=== PATIENT | male | born 1960 | race Caucasian/White ===

== ENCOUNTER → 2023-02-25 13:25 | Outpatient (BNVA) | payer MEDICARE, MEDICAID, SELFPAY | PROVIDERS: PCP Physician Assistant Medical; Visit Provider Psychiatry & Neurology Neurology | DX: R26.9 Unspecified abnormalities of gait and mobility (principal); R29.6 Repeated falls | CPT/HCPCS: 99202 ==

== ENCOUNTER 2023-03-31 13:07 | Outpatient (REF) | payer MEDICARE, MEDICAID, SELFPAY ==
--- NOTE | ~2023-03-31 | MR_ITS ---
EXAMINATION: MR BRAIN WITHOUT CONTRAST CLINICAL INFORMATION: Unspecified abnormalities of gait and mobility. COMPARISON: None available. TECHNIQUE: Multiplanar, multisequence imaging of the brain was performed without intravenous contrast. FINDINGS: There is an ill-defined lesion within the right aspect of the soft palate measuring up to 2.0 x 1.7 cm, best seen on series 7 image 12/17. There is no acute or chronic infarction, hemorrhage, mass, or extra-axial fluid collection. Mild scattered foci of T2/FLAIR hyperintensity are seen within the cerebral white matter, typical of chronic microangiopathy. The ventricles are normal in size without hydrocephalus. Cerebellopontine angle cisterns appear normal. The arterial flow voids appear preserved at the skull base. The orbits appear normal. There is minimal paranasal sinus mucosal thickening. The mastoids are clear. MR/MR head/brain wo con IMPRESSION: 1. No acute intracranial abnormality. No infarct, mass, or hydrocephalus. 2. Ill-defined lesion within the right aspect of the soft palate measuring up to 2.0 x 1.7 cm. Recommend ENT evaluation. This report will be called in to the ordering clinician's office.
== END 2023-03-31 13:08 | disposition home or self-care (01) ==
LOC: HO.MRI 13:07
PROVIDERS: PCP Physician Assistant Medical; Visit Provider Psychiatry & Neurology Neurology
DX: R26.9 Unspecified abnormalities of gait and mobility (principal)
CPT/HCPCS: 70551

== ENCOUNTER 2023-04-02 14:55 | Outpatient (REF) | payer MEDICARE, MEDICAID, SELFPAY ==
--- NOTE | ~2023-04-02 | MR_ITS ---
EXAMINATION: MR CERVICAL SPINE WITHOUT CONTRAST CLINICAL INFORMATION: Repeated falls COMPARISON: None TECHNIQUE: MRI of the cervical spine was obtained using routine sequences without contrast. FINDINGS: The craniocervical junction is intact. Trace retrosubluxation of the right C1 lateral mass relative to the right C2 lateral mass with well aligned left C1-C2 facet joint. Straightening of the normal cervical lordosis. Grade 1 anterolisthesis of C7 on T1. Vertebral body heights are normal without acute compression fracture. No suspicious osseous lesion. Diffuse disc desiccation with severe C5-C6 and T1-T2 and moderate C3-C4, C6-C7, and C7-T1 disc height loss. Prominent type I Modic endplate change at C5-C6 and to a much lesser extent at T1-T2 and T3-T4. Multilevel degenerative endplate irregularity/Schmorl's node formation. Several ventral disc osteophytes, most pronounced at C5-C6. There are multilevel degenerative changes with level by level detail as follows: C2-C3: Broad-based central disc protrusion eccentric to the right with minor uncovertebral spurring and bilateral facet arthrosis, severe on the right with associated small joint effusion. No spinal canal or right neural foraminal stenosis. Minimal left neural foraminal stenosis. C3-C4: Disc osteophyte complex with superimposed central disc protrusion, bilateral uncovertebral joint hypertrophy and mild facet arthrosis with ligamentum flavum thickening. Moderate spinal canal stenosis with contact/mild mass effect effect along the right paramedian ventral cord. Moderate right greater than left neural foraminal stenosis. C4-C5: Disc osteophyte complex with superimposed shallow central disc protrusion, uncovertebral joint hypertrophy, and right greater than left facet arthrosis with ligamentum flavum thickening. Moderate spinal canal stenosis. Moderate right and mild left neural foraminal stenosis. C5-C6: Disc osteophyte complex with marked bilateral uncovertebral joint hypertrophy and mild bilateral facet arthrosis with ligamentum flavum thickening. Moderate to severe spinal canal stenosis with ventral cord flattening. Severe bilateral neural foraminal stenosis. C6-C7: Disc osteophyte complex with bilateral uncovertebral joint hypertrophy and mild bilateral facet arthrosis. No spinal canal stenosis. Moderate to severe bilateral neural foraminal stenosis. C7-T1: Grade 1 anterolisthesis with uncovering of posterior disc material and bilateral facet arthrosis with ligamentum flavum thickening. Mild degenerative marrow edema with the right facet joint. Mild spinal canal stenosis. Severe bilateral neural foraminal stenosis with compression along the exiting C8 nerve roots. No cervical cord signal abnormality, within the limitations of motion artifact. No epidural fluid collection, mass, or hematoma. Partially imaged thoracic spondylitic disease, including disc bulges at T1-T2 and T3-T4 however without overt spinal canal stenosis. Mild bilateral T1-T2 neural foraminal stenosis. No significant abnormalities of the paraspinal musculature. The flow voids of the major cervical vessels are maintained. Atherosclerotic disease at the bilateral carotid bifurcations with short segment retropharyngeal course of the right proximal internal carotid artery. The visualized intracranial structures are normal. No demonstrated abnormalities in the visualized neck. MR/MR cervical spine wo con IMPRESSION: Multilevel moderate to severe discogenic disease, most pronounced at C5-C6 where there is prominent type I Modic endplate change. Multilevel cervical spondylosis contributes to moderate to severe C5-C6 and moderate C3-C4 and C4-C5 spinal canal stenosis. No cord signal abnormality. Multilevel neural foraminal stenosis as described, worst and severe bilaterally at C5-C6 and C7-T1 with compression of the exiting bilateral C8 nerve roots. Degenerative marrow edema associated with right C7-T1 facet arthropathy.
== END 2023-04-02 14:56 | disposition home or self-care (01) ==
LOC: HO.MRI 14:55
PROVIDERS: Visit Provider Psychiatry & Neurology Neurology
DX: R29.6 Repeated falls (principal)
CPT/HCPCS: 72141

== ENCOUNTER 2023-06-02 15:32 | Outpatient (AMB) | payer MEDICARE, MEDICAID, SELFPAY ==
[2023-06-02 15:37] VITALS: BP 138/82; PULSE 70; BMI 34.3
--- NOTE | 2023-06-02 15:37 | MHC.OFFVIS ---
Intake Vital Signs 06/02/23 15:37 Height 5 ft 10 in Weight 239 lb 2 oz BMI 34.3 BP 138/82 Blood Pressure Location Rt brachial Position Sitting Pulse 70 Pulse Source Pulse Oximeter Intake Visit Reasons: 3mSupranuclear Palsy-lvm Intake Note: Patient presents for 3 month follow up Allergies morphine Allergy (Severe, Verified 06/02/23 15:40) Itching Medication List - Last Reconciled 06/02/23 by Melody Horvath MD allopurinol 300 mg PO DAILY gabapentin 300 mg PO DAILY ibuprofen 600 mg PO TID PRN indomethacin 50 mg PO TID lisinopril 40 mg PO DAILY paroxetine HCl 40 mg PO DAILY HPI HPI Comments History of Present Illness Details 62y/o right handed male comes for follow up of multiple falls and gait problems.He had 1-2 falls since his last visit.He is less impulsive.MRI brain was non focal MRI C spine was c/w severe spinal stenosis at C3-4,4-5,5-6 levels He denies neck pain, no numbness , has diffiuclty holding his urine at night He noticed that his balance was not good and had multiple falls starting about 1 year agoHe had 1-3 falls a week . He started to slow down and be more attentive and his falls decreased since then.his last fall was about 6 mths ago He has h/o chronic back pain. He also reports leg cramps and numbness mostly on his right when he is sitting. He also reports tingling worse when he is sitting.He has occasional shooting pain from back down his legs .He denies urinary incontinence. He has occasional neck pain and rare tremors. He denies any change in his voice. His last fall was when he tried to turn and lost his balance.No h/o heavy alcohol use. He has h/o vertigo- mild. He denies any passing out . According to his he walks into things . He is not sure if he has any visual issues. 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 Neck pain Obesity AMEE on CPAP Spinal stenosis in cervical region Family History Father Cancer HTN (hypertension) Gout Mother Cancer Hepatitis Social History Alcohol intake: current Patient Tobacco Use Status: Never used Tobacco Physical Exam Vital Signs: Last Vital Signs Pulse 70 06/02/23 15:37 BP 138/82 06/02/23 15:37 BMI result Body Mass Index 34.3 Const Orientation/consciousness: patient oriented x3 Eyes Pupils: Equal, round and reactive pupils present Neuro Other: mild dysonjugate gaze General: patient oriented x3, tone normal, moves all extremities and no focal motor deficits Cranial nerves: Yes Facial sensation intact/muscles of mastication intact, Yes Equal, round and reactive pupils present, Yes Nystagmus not present, Yes Normal facial strength present, Yes Midline tongue present, Yes Symmetric palate elevation present and Yes Ability to bilaterally elevate shoulders present Cognition (Neuro): normal cognition Gait exam (Neuro): Antalgic gait present Motor exam (neuro): 5/5 motor strength present throughout Deep tendon reflexes (DTR's): Right triceps reflex intensity grade: 1+, Left triceps reflex intensity grade: 1+, Rt Biceps (C5, C6): 1+, Left biceps reflex intensity grade: 1+, Right brachioradialis reflex intensity grade: 1+, Left brachioradialis reflex intensity grade: 1+, Right patellar reflex intensity grade: 1+ and Left patellar reflex intensity grade: 0 Coordination: [id number]-turo test normal Results Reviewed Results Reviewed: MRI Brain -?No acute intracranial abnormality. No infarct, mass, or hydrocephalus. 2.? Ill-defined lesion within the right aspect of the soft palate measuring up to 2.0 x 1.7 cm. Recommend ENT evaluation. TECHNIQUE: MRI of the cervical spine was obtained using routine sequences without contrast. FINDINGS: The craniocervical junction is intact. Trace retrosubluxation of the right C1 lateral mass relative to the right C2 lateral mass with well aligned left C1-C2 facet joint. Straightening of the normal cervical lordosis. Grade 1 anterolisthesis of C7 on T1. Vertebral body heights are normal without acute compression fracture. No suspicious osseous lesion. Diffuse disc desiccation with severe C5-C6 and T1-T2 and moderate C3-C4, C6-C7, and C7-T1 disc height loss. Prominent type I Modic endplate change at C5-C6 and to a much lesser extent at T1-T2 and T3-T4. Multilevel degenerative endplate irregularity/Schmorl's node formation. Several ventral disc osteophytes, most pronounced at C5-C6. There are multilevel degenerative changes with level by level detail as follows: C2-C3: Broad-based central disc protrusion eccentric to the right with minor uncovertebral spurring and bilateral facet arthrosis, severe on the right with associated small joint effusion. No spinal canal or right neural foraminal stenosis. Minimal left neural foraminal stenosis. C3-C4: Disc osteophyte complex with superimposed central disc protrusion, bilateral uncovertebral joint hypertrophy and mild facet arthrosis with ligamentum flavum thickening. Moderate spinal canal stenosis with contact/mild mass effect effect along the right paramedian ventral cord. Moderate right greater than left neural foraminal stenosis. C4-C5: Disc osteophyte complex with superimposed shallow central disc protrusion, uncovertebral joint hypertrophy, and right greater than left facet arthrosis with ligamentum flavum thickening. Moderate spinal canal stenosis. Moderate right and mild left neural foraminal stenosis. C5-C6: Disc osteophyte complex with marked bilateral uncovertebral joint hypertrophy and mild bilateral facet arthrosis with ligamentum flavum thickening. Moderate to severe spinal canal stenosis with ventral cord flattening. Severe bilateral neural foraminal stenosis. C6-C7: Disc osteophyte complex with bilateral uncovertebral joint hypertrophy and mild bilateral facet arthrosis. No spinal canal stenosis. Moderate to severe bilateral neural foraminal stenosis. C7-T1: Grade 1 anterolisthesis with uncovering of posterior disc material and bilateral facet arthrosis with ligamentum flavum thickening. Mild degenerative marrow edema with the right facet joint. Mild spinal canal stenosis. Severe bilateral neural foraminal stenosis with compression along the exiting C8 nerve roots. No cervical cord signal abnormality, within the limitations of motion artifact. No epidural fluid collection, mass, or hematoma. Partially imaged thoracic spondylitic disease, including disc bulges at T1-T2 and T3-T4 however without overt spinal canal stenosis. Mild bilateral T1-T2 neural foraminal stenosis. No significant abnormalities of the paraspinal musculature. The flow voids of the major cervical vessels are maintained. Atherosclerotic disease at the bilateral carotid bifurcations with short segment retropharyngeal course of the right proximal internal carotid artery. The visualized intracranial structures are normal. No demonstrated abnormalities in the visualized neck.? MR/MR cervical spine wo con IMPRESSION: Multilevel moderate to severe discogenic disease, most pronounced at C5-C6 where there is prominent type I Modic endplate change. Multilevel cervical spondylosis contributes to moderate to severe C5-C6 and moderate C3-C4 and C4-C5 spinal canal stenosis. No cord signal abnormality. Multilevel neural foraminal stenosis as described, worst and severe bilaterally at C5-C6 and C7-T1 with compression of the exiting bilateral C8 nerve roots. Degenerative marrow edema associated with right C7-T1 facet arthropathy. ? Assessment & Plan Assessment & Plan (1) Gait disorder: Comment: cervical spinal stenosis Code(s): R26.9 - Unspecified abnormalities of gait and mobility (2) Frequent falls: Code(s): R29.6 - Repeated falls Plan No evidence of parkinsons or parkinsonism I will refer to Dr. Quinonez for cervical spinal stenosis The falls and gait disorder are multifactorial - cognitive neurologic and musculoskeletal - suggested to continue with paying attention , using good judgment while ambulating Orders: Referrals Neuro Spine Referral M48.02 - Spinal stenosis, cervical region Coding Level of Care Code Est Pt Level 4 (34880) Diagnoses Gait disorder R26.9 Frequent falls R29.6
== END 2023-06-02 16:00 | disposition home or self-care (01) ==
LOC: HO.HSMS 15:32
PROVIDERS: PCP Physician Assistant Medical; Visit Provider Psychiatry & Neurology Neurology
DX: R26.9 Unspecified abnormalities of gait and mobility (principal); R29.6 Repeated falls
CPT/HCPCS: 99214

== ENCOUNTER → 2023-06-02 15:32 | Outpatient (BNVA) | payer MEDICARE, MEDICAID, SELFPAY | PROVIDERS: PCP Physician Assistant Medical; Visit Provider Psychiatry & Neurology Neurology | DX: R29.6 Repeated falls (principal); M48.02 Spinal stenosis, cervical region | CPT/HCPCS: 99212 ==

== ENCOUNTER 2023-08-07 10:19 | Outpatient (AMB) | payer MEDICARE, SELFPAY ==
--- NOTE | 2023-08-07 10:39 | A.SPINEOV_ITS ---
Intake Intake Visit Reasons: spinal stenosis Allergies morphine Allergy (Severe, Verified 06/02/23 15:40) Itching Assessment & Plan Assessment & Plan (1) Hip pain, acute: Code(s): M25.559 - Pain in unspecified hip (2) Bilateral carpal tunnel syndrome: Code(s): G56.03 - Carpal tunnel syndrome, bilateral upper limbs Plan Dear colleague Thank you for referring Sai Shin to the office today with a chief complaint of right hip pain. HPI: This 62-year-old male comes to my office complaining of acute right hip pain that started 3 months ago. He thought that is why he was referred to my office. On further questioning, he states he has neck pain without radiation into his arms, intermittent numbness of his hands any drops objects. He also has balance problems. The numbness in his hands occurred when he drives was on the phone. The numbness wakes him up at night and any is to shake his hands. PMH: Throat cancer, Neuropathy, gout, anxiety, GERD, hypertension Social history: Medications: Lisinopril, allopurinol, omeprazole, paroxetine, aspirin Allergies: NKDA Physical Exam: Pleasant male, normal strength. Romberg is positive. No pathological reflexes. Tinel sign is positive over the bilateral wrist. Endo and extra rotation of the right hip is very painful. Radiological Studies: MRI of the cervical spine done at [facility] [place] on [place]/02/2023 shows severe degenerative disc disease C5-C6 and severe bilateral C6 foraminal stenosis. There is central spinal stenosis but I still see spinal fluid around the cord. No myelomalacia Impression/Plan: His main symptom is right hip pain with positive findings on exam for which I referred him to , orthopedic surgeon. I did obtain an x-ray of the right hip today. The patient's neck pain is related to the C5-C6 degenerative disc disease. His exam shows no signs of cervical myelopathy and therefore did not offer him any surgical intervention. However, clinically he is suffering from bilateral carpal tunnel syndrome. I will refer for an EMG to confirm the diagnosis and will treat this if comes back positive. The patient will follow-up after the EMG. Thank you for allowing me to participate in your patients care. total time spent was 50 minutes in counseling ,coordination of plan, personal review of imaging, and subsequent plan Adrian Quinonez MD, PhD Sp[facility] Trained Neurosurgeon Director, [facility] Orders: Orders XR hip RT min 2V Today M25.559 - Pain in unspecified hip NE electromyogram (EMG) Today G56.03 - Carpal tunnel syndrome, bilateral upper limbs, M25.559 - Pain in unspecified hip Referrals Orthopedics Referral M25.559 - Pain in unspecified hip Coding Level of Care Code New Pt Level 4 (75427) Diagnoses Hip pain, acute M25.559 Bilateral carpal tunnel syndrome G56.03
== END 2023-08-07 11:41 | disposition home or self-care (01) ==
PROVIDERS: PCP Physician Assistant Medical; Referring Provider Psychiatry & Neurology Neurology; Visit Provider Neurological Surgery
DX: M25.559 Pain in unspecified hip (principal); G56.03 Carpal tunnel syndrome, bilateral upper limbs
CPT/HCPCS: 99204

== ENCOUNTER 2023-08-07 10:19 | Outpatient (REF) | payer MEDICARE, SELFPAY ==
--- NOTE | ~2023-08-07 | XR_ITS ---
EXAMINATION: XR HIP, RIGHT CLINICAL INFORMATION: Pain in unspecified hip COMPARISON: None available. TECHNIQUE: Two views of the right hip. FINDINGS: No fracture. Alignment is anatomic. There is marked narrowing of the superior-lateral aspect of the hip joint space. Subchondral sclerosis is seen in the superior dorsolateral aspect of the acetabulum. Small marginal osteophytes extend off the acetabulum and femoral head. XR/XR hip RT min 2V IMPRESSION: Marked osteoarthritis of the right hip.
== END 2023-08-07 10:20 | disposition home or self-care (01) ==
LOC: HO.HOSX 10:19
PROVIDERS: PCP Physician Assistant Medical; Visit Provider Neurological Surgery
DX: M25.551 Pain in right hip (principal)
CPT/HCPCS: 73502

== ENCOUNTER 2023-08-26 12:28 | Outpatient (AMB) | payer MEDICARE, SELFPAY ==
--- NOTE | 2023-08-26 12:32 | A.OFFVIS_ITS ---
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 Patient describes his pains as sharp in nature. Patient states that over the last 6 months he has fallen on several occasions. The patient is not sure why he has fallen. He states that he simply lost his balance. He also reports intermittent weakness in both of his legs. He describes his right hip pain as achy in nature. Most of the pain is located within his right groin. He is due to have an EMG of both of his upper extremities to evaluate him for possible carpal tunnel syndrome later this month. 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 Hyperlipidemia HTN (hypertension) Obesity Frequent falls Gait disorder Family History Father Cancer HTN (hypertension) Gout Mother Cancer Hepatitis Social History (Updated 08/26/23 @ 12:38 by Shannan Alva Abena) Alcohol intake: current Patient Tobacco Use Status: Never used Tobacco Current occupational status: employed 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 Physical Exam Vital Signs: BMI result Body Mass Index 34.3 Const Other: Well-nourished well-developed very friendly male awake alert and oriented x3 in no acute distress Extrem Other: Bilateral lower extremity examination shows good capillary refill, no skin lesions noted, normal sensation light touch Right hip examination shows decreased range of motion when compared to his left hip, pain with range of motion, no tenderness over Results Reviewed Results Reviewed: X-rays of the patient's right hip show moderate to severe joint space narrowing, subchondral sclerosis, no acute bony abnormalities MRI report of the patient's cervical spine shows moderate to severe spinal canal stenosis with ventral cord flattening as well as severe bilateral neural foraminal stenosis at level C5-C6, moderate to severe bilateral neural foraminal stenosis at level C6-C7, severe bilateral neural foraminal stenosis with compression along the exiting C8 nerve roots at level C7-T1 Assessment & Plan Assessment & Plan (1) Arthritis of right hip: Code(s): M16.11 - Unilateral primary osteoarthritis, right hip Plan Mr. Shin presents with right hip pain due to degenerative joint disease as well as neck pain and frequent falls possibly due to cervical stenosis. I had a lengthy discussion with the patient regarding the treatment options. He wishes to hold off on right total hip replacement surgery for as long as possible. In lieu of his recent falls I agree with this plan. I did recommend that the patient has follow-up with a next specialist for further information regarding his cervical stenosis. He states that he knows of a neck specialist at [facility]. He will contact our office to make a follow-up appointment to further discuss the possible relationship between his recent falls and his cervical MRI findings. Feel free to call me at any time should questions regarding his orthopedic management arise. Thank you very much for asking me to see this very friendly gentleman. I spent 22 minutes in reviewing the patient's records and imaging studies, seeing the patient and documenting in the medical record. Medications: New prednisolone 5 mg PO DAILY 21 ea 0RF tramadol 50 mg PO Q8H PRN 40 tabs 0RF pain Coding Level of Care Code New Pt Level 2 (92074) Diagnoses Arthritis of right hip M16.11
[2023-08-26 12:38] VITALS: BMI 34.3
== END 2023-08-26 12:59 | disposition home or self-care (01) ==
PROVIDERS: PCP Physician Assistant Medical; Visit Provider Orthopaedic Surgery
DX: M16.11 Unilateral primary osteoarthritis, right hip (principal)
CPT/HCPCS: 99202

== ENCOUNTER → 2023-08-26 12:28 | Outpatient (BNVA) | payer MEDICARE, SELFPAY | PROVIDERS: PCP Physician Assistant Medical; Visit Provider Orthopaedic Surgery | DX: M16.11 Unilateral primary osteoarthritis, right hip (principal); G56.03 Carpal tunnel syndrome, bilateral upper limbs; M25.551 Pain in right hip; M54.2 Cervicalgia; R29.6 Repeated falls | CPT/HCPCS: 99202 ==

== ENCOUNTER 2023-09-04 14:09 | Outpatient (REF) | payer MEDICARE, SELFPAY ==
--- NOTE | 2023-09-04 14:16 | EMG_ITS ---
Chief complaint: Bilateral hand numbness several years Reason for referral: Evaluate for Carpal Tunnel Syndrome Referred by: Dr. Quinonez Procedure done: Bilateral upper extremities NCS/EMG Precautions and/or limitations: None The limb temperature was monitored continuously and remained between 32-36 degrees C during the performance of the NCS. Nerve Conduction Studies Anti Sensory Summary Table ?Stim Site NR Onset (ms) Norm Onset (ms) Peak (ms) Norm Peak (ms) O-P Amp (?V) Norm O-P Amp Site1 Site2 Delta-0 (ms) Dist (cm) Jeremiah (m/s) Norm Jeremiah (m/s) Left Median Anti Sensory (2nd Digit) Wrist NR <3.6 >10 Wrist 2nd Digit 14.0 Right Median Anti Sensory (2nd Digit) Wrist ? 4.3 5.5 <3.6 8.2 >10 Wrist 2nd Digit 4.3 14.0 33 Left Ulnar Anti Sensory (5th Digit) Wrist ? 1.5 2.2 <3.7 9.3 >15.0 Wrist 5th Digit 1.5 14.0 93 Right Ulnar Anti Sensory (5th Digit) Wrist ? 1.6 2.6 <3.7 16.5 >15.0 Wrist 5th Digit 1.6 14.0 88 Motor Summary Table ?Stim Site NR Onset (ms) Norm Onset (ms) O-P Amp (mV) Norm O-P Amp iAmp (mV) Amp (1st) (%) Site1 Site2 Delta-0 (ms) Dist (cm) Jeremiah (m/s) Norm Jeremiah (m/s) Left Median Motor (Abd Poll Brev) Wrist ? 8.2 <3.9 3.7 >4.5 4.1 100.0 Elbow Wrist 6.1 21.0 34 >45 Elbow ? 14.3 1.8 1.7 48.6 Right Median Motor (Abd Poll Brev) Wrist ? 5.6 <3.9 5.2 >4.5 6.1 100.0 Elbow Wrist 5.1 22.0 43 >45 Elbow ? 10.7 3.6 4.4 69.2 Left Ulnar Motor (Abd Dig Minimi) Wrist ? 3.0 <3.0 6.6 >5 7.8 100.0 B Elbow Wrist 3.9 19.0 49 >45 B Elbow ? 6.9 6.0 7.0 90.9 A Elbow B Elbow 1.6 10.0 63 >45 A Elbow ? 8.5 5.4 6.4 81.8 Right Ulnar Motor (Abd Dig Minimi) Wrist ? 2.3 <3.0 8.2 >5 10.5 100.0 B Elbow Wrist 4.0 20.0 50 >45 B Elbow ? 6.3 5.9 7.4 72.0 A Elbow B Elbow 1.9 10.0 53 >45 A Elbow ? 8.2 5.1 6.1 62.2 EMG ?Side Muscle Nerve Root Ins Act Fibs Psw Amp Dur Poly Recrt Int Pat Comment Right 1stDorInt Ulnar C8-T1 Nml Nml Nml Nml Nml 0 Nml Complete Right FlexCarRad Median C6-7 Nml Nml Nml Nml Nml 0 Nml Complete Right Biceps Musculocut C5-6 Nml Nml Nml Nml Nml 0 Nml Complete Right Triceps Radial C6-7-8 Nml Nml Nml Nml Nml 0 Nml Complete Right Deltoid Axillary C5-6 Nml Nml Nml Nml Nml 0 Nml Complete Left 1stDorInt Ulnar C8-T1 Nml Nml Nml Nml Nml 0 Nml Complete Left FlexCarRad Median C6-7 Nml Nml Nml Nml Nml 0 Nml Complete Left Biceps Musculocut C5-6 Nml Nml Nml Nml Nml 0 Nml Complete Left Triceps Radial C6-7-8 Nml Nml Nml Nml Nml 0 Nml Complete Left Deltoid Axillary C5-6 Nml Nml Nml Nml Nml 0 Nml Complete FINDINGS: Right median motor nerve showed prolonged distal latency, normal amplitude and slow conduction velocity. Left median motor nerve showed prolonged distal latency, small amplitude and slow conduction velocity. Right median sensory nerve showed prolonged peak latency. Left median sensory nerve showed absent response. All other nerves tested were within normal. Concentric needle EMG was performed in selected muscles of the bilateral upper extremities. Study did not reveal signs of electric abnormalities as shown in the table below. IMPRESSION: 1. This is an abnormal study. 2. There is electrodiagnostic evidence for bilateral moderate-severe median neuropathy at the wrist, consistent with carpal tunnel syndrome. 3. There is no electrodiagnostic evidence for ulnar neuropathy, brachial plexopathy, or cervical radiculopathy. Thank you for your kind referral. Lenore Haynes MD, TRISTEN Board Certified, [place] [employer] and [employer] (ABPMR) Board Certified, [place] Board of Electrodiagnostic Medicine (ABEM) CODIN [id number] x 2 MTDD
== END 2023-09-04 14:10 | disposition home or self-care (01) ==
LOC: HO.NEURO 14:09
PROVIDERS: PCP Physician Assistant Medical; Visit Provider Neurological Surgery
DX: G56.03 Carpal tunnel syndrome, bilateral upper limbs (principal)
CPT/HCPCS: 95886; 95910

== ENCOUNTER → 2023-09-04 14:16 | Outpatient (BNV) | payer MEDICARE, SELFPAY | PROVIDERS: PCP Physician Assistant Medical; Visit Provider Physical Medicine & Rehabilitation | DX: G56.13 Other lesions of median nerve, bilateral upper limbs (principal); G56.03 Carpal tunnel syndrome, bilateral upper limbs | CPT/HCPCS: 95886; 95910 ==

== ENCOUNTER 2023-09-22 14:58 | Outpatient (AMB) | payer MEDICARE, SELFPAY ==
--- NOTE | 2023-09-22 16:12 | MHC.OFFVIS ---
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 As Dr. Quinonez suspected, he has bilateral moderate to severe carpal tunnel. We discussed the risks and benefits of surgery as well as the recovery. He would like to proceed starting with the left hand and then subsequently to the right hand. I have set him up for 2 separate dates, December 10 and 12/24/2023. All questions were answered to the best of my ability. Total amount of time spent in this visit was 20 minutes in discussion of symptoms, EMG results and subsequent plan of care Matt Quinonez MD,PhD [facility] Coding Level of Care Code Est Pt Level 3 (13514) Diagnoses Bilateral carpal tunnel syndrome G56.03
== END 2023-09-22 16:16 | disposition home or self-care (01) ==
PROVIDERS: PCP Physician Assistant Medical; Visit Provider Physician Assistant
DX: G56.03 Carpal tunnel syndrome, bilateral upper limbs (principal)
CPT/HCPCS: 99213

== ENCOUNTER → 2023-09-22 14:58 | Outpatient (BNVA) | payer MEDICARE, SELFPAY | PROVIDERS: PCP Physician Assistant Medical; Visit Provider Physician Assistant | DX: G56.03 Carpal tunnel syndrome, bilateral upper limbs (principal) | CPT/HCPCS: 99212 ==

== ENCOUNTER 2023-09-29 14:04 | Outpatient (AMB) | payer MEDICARE, MEDICAID, SELFPAY ==
--- NOTE | 2023-09-29 14:08 | A.OFFVIS_ITS ---
Intake Vital Signs 09/29/23 14:10 Height 5 ft 10 in Weight 237 lb 4 oz BMI 34.0 BP 136/70 Blood Pressure Location Rt brachial Position Sitting Respiration 17 Pulse 67 Pulse Source Pulse Oximeter Pulse Oximetry (%) 97 Oxygen Delivery Method Room Air Intake Visit Reasons: 4m Supranuclear Palsy- Confirmed Intake Note: Pt presents to the office for a 4 month follow up for frequent falls. He reports he's been doing well. He denies having any falls since his last visit. [facility] [place] Required: No Allergies morphine Allergy (Severe, Verified 09/29/23 14:10) Itching HPI HPI Comments History of Present Illness Details 63y/o right handed male comes for follow up of multiple falls and gait problems.He had 1-2 falls since his last visit.He is less impulsive.MRI brain was non focal MRI C spine was c/w severe spinal stenosis at C3-4,4-5,5-6 levels- reviewed by Dr. Quinonez and another [facility] Neurosurgeon did not think its surgical He denies neck pain, no numbness , has difficulty holding his urine at night Previous history-He noticed that his balance was not good and had multiple falls starting about 1 year agoHe had 1-3 falls a week . He started to slow down and be more attentive and his falls decreased since then.his last fall was about 6 mths ago He has h/o chronic back pain. He also reports leg cramps and numbness mostly on his right when he is sitting. He also reports tingling worse when he is sitting.He has occasional shooting pain from back down his legs .He denies urinary incontinence. He has occasional neck pain and rare tremors. He denies any change in his voice. His last fall was when he tried to turn and lost his balance.No h/o heavy alcohol use. He has h/o vertigo- mild. He denies any passing out . According to his he walks into things . He is not sure if he has any visual issues. He has an appointment with concession cashier next week. 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 Physical Exam Vital Signs: Last Vital Signs Pulse 67 09/29/23 14:10 Resp 17 09/29/23 14:10 BP 136/70 09/29/23 14:10 Pulse Ox 97 09/29/23 14:10 Oxygen Delivery Method Room Air 09/29/23 14:10 BMI result Body Mass Index 34.0 Const Orientation/consciousness: patient oriented x3 Eyes Pupils: Equal, round and reactive pupils present Neuro Other: mild dysonjugate gaze General: patient oriented x3, tone normal, moves all extremities and no focal motor deficits Cranial nerves: Yes Facial sensation intact/muscles of mastication intact, Yes Equal, round and reactive pupils present, Yes Nystagmus not present, Yes Normal facial strength present, Yes Midline tongue present, Yes Symmetric palate elevation present and Yes Ability to bilaterally elevate shoulders present Cognition (Neuro): normal cognition Gait exam (Neuro): Antalgic gait present Motor exam (neuro): 5/5 motor strength present throughout Coordination: [id number] test normal Assessment & Plan Assessment & Plan (1) Gait disorder: Comment: cervical spinal stenosis Code(s): R26.9 - Unspecified abnormalities of gait and mobility (2) Frequent falls: Code(s): R29.6 - Repeated falls Plan No evidence of parkinsons or parkinsonism Dr. Quinonez for cervical spinal stenosis - did not think it was surgical. reviewed notes The falls and gait disorder are multifactorial - cognitive neurologic and musculoskeletal - suggested to continue with paying attention , using good judgment while ambulating Coding Level of Care Code Est Pt Level 4 (20302) Diagnoses Gait disorder R26.9 Frequent falls R29.6
[2023-09-29 14:10] VITALS: BP 136/70; PULSE 67; RESP 17; O2SAT 97; BMI 34.0
== END 2023-09-29 14:38 | disposition home or self-care (01) ==
PROVIDERS: PCP Physician Assistant Medical; Visit Provider Psychiatry & Neurology Neurology
DX: R26.9 Unspecified abnormalities of gait and mobility (principal); R29.6 Repeated falls
CPT/HCPCS: 99214

== ENCOUNTER → 2023-09-29 14:04 | Outpatient (BNVA) | payer MEDICARE, SELFPAY | PROVIDERS: PCP Physician Assistant Medical; Visit Provider Psychiatry & Neurology Neurology | DX: G23.1 Progressive supranuclear ophthalmoplegia [Steele-Richardson-Olszewski] (principal); M48.02 Spinal stenosis, cervical region; R26.9 Unspecified abnormalities of gait and mobility; R29.6 Repeated falls | CPT/HCPCS: 99212 ==

== ENCOUNTER 2023-11-30 09:19 | Day surgery (SDC) | payer MEDICARE, SELFPAY ==
--- NOTE | 2023-11-30 07:31 | MHC.SHP ---
Pre-Procedural Eval Section A Date of Service: 11/30/23 The patient is an INPATIENT: No Changes since office visit: No Cold of Flu in the past 2 weeks, No New Medical Problems, No Changes in Medication and No Patient answered all questions The History & Physical has been completed within 30 days and I have reviewed it.: No Section B Chief Complaint: Carpal tunnel syndrome, bilateral upper limbs Allergies: Allergies Allergy/AdvReac Type Severity Reaction Status Date / Time morphine Allergy Severe Itching Verified 09/29/23 14:10 Review of Systems Sugical H&P ROS: Negative: Constitution, Cardiovascular, Respiratory, Neurological, Psychiatric, Hem-Onc, Allergic/Immunologic, Gastrointestinal, Genitourinary, Musculoskeletal, Integumentary, Endocrine and Eyes/Ears/Nose/Throat Exam Surgical H&P Exam: Not Evaluated: HEENT, Not Evaluated: Heart, Not Evaluated: Lungs, Not Evaluated: Extremities, Not Evaluated: Abdomen, Not Evaluated: Skin and Not Evaluated: Neurological Plan Diagnosis/Plan: Unchanged Left Carpal tunnel release Time Spent With Patient Time: Total time managing care of this patient today ___5_ minutes.
[2023-11-30 09:51] VITALS: BMI 35.0
[2023-11-30 10:00] VITALS: BP 153/88; PULSE 62; RESP 16; TEMP 36.7; O2SAT 94
--- NOTE | 2023-11-30 10:26 | HO.ANESPROP2 ---
[facility] Active Problems Active Problems: All Active Problems (Updated 08/26/23 @ 14:10 by Ricci Marino MD) Arthritis of right hip (Acute) Bilateral carpal tunnel syndrome (Acute) Hip pain, acute (Acute) Spinal stenosis in cervical region (Acute) AMEE on CPAP (Acute) Neck pain (Acute) Low back pain (Acute) BPH (benign prostatic hyperplasia) (Acute) Depression (Acute) Arthritis (Acute) Gout (Acute) Hyperlipidemia (Acute) HTN (hypertension) (Acute) Obesity (Acute) Frequent falls (Acute) Gait disorder (Acute) Past Medical History Medical History Spinal stenosis in cervical region AMEE on CPAP Neck pain Low back pain BPH (benign prostatic hyperplasia) Depression Arthritis Gout 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 Hyperlipidemia HTN (hypertension) Obesity Frequent falls Gait disorder Family History Family History Father Cancer HTN (hypertension) Gout Mother Cancer Hepatitis Family history of problems with anesthesia: No Surgical History History of Problems with Anesthesia: No Social History Social History Alcohol intake: current Alcohol intake frequency: a few times a week Patient Tobacco Use Status: Never used Tobacco Second Hand Smoke Exposure: No Use of substances other than those prescribed or required for medical reasons: No Are you DNR?: No Advance Directives: No Advance Directives Information Provided: Yes Advance Directives on File: No Current occupational status: employed 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 Meds Allergies Allergy/AdvReac Type Severity Reaction Status Date / Time morphine Allergy Severe Itching Verified 09/29/23 14:10 Active Medications: Current Medications Cefazolin Sodium/Dextrose (Ancef) 2 gm in 50 mls @ 100 mls/hr IV PREOP ONE Stop: 11/30/23 10:36 Home Medications Medication Instructions Recorded Confirmed Last Taken Type allopurinol 300 mg tablet 300 mg PO DAILY 02/25/23 08/26/23 Unknown History ibuprofen 600 mg tablet 600 mg PO TID PRN moderate pain 02/25/23 08/26/23 Unknown History indomethacin 50 mg capsule 50 mg PO TID gout pain 02/25/23 08/26/23 Unknown History lisinopril 40 mg tablet 40 mg PO DAILY 02/25/23 08/26/23 Unknown History paroxetine HCl 40 mg tablet 40 mg PO DAILY 02/25/23 08/26/23 Unknown History aspirin 81 mg tablet,delayed 81 mg PO DAILY 08/26/23 08/26/23 Unknown History release (Adult Low Dose Aspirin) Exam Height,Weight and Vital Signs: Height 5 ft 10 in Weight 110.762 kg Last Vital Signs Temp 98.0 F 11/30/23 10:00 Pulse 62 11/30/23 10:00 Resp 16 11/30/23 10:00 BP 153/88 H 11/30/23 10:00 Pulse Ox 94 11/30/23 10:00 O2 Del Method Room Air 11/30/23 10:00 Airway Mallampati Class: II TM Dist: >3cm Neck ROM: Full Assessment and Plan Assessment Anesthesia Assessment: Anesthesia Plan Discussed and Chart Reviewed Final Anesthetic Review Family History of Problems with Anesthesia: No History of Problems with Anesthesia: No NPO: Yes ASA Class: III Final Preanesthetic Review: No Changes in Pt Med Stat, Meds/Allgs Chart Reviewed, Consent Obtained/Reviewed and Anes Risks/Benef Reviewed Patient Risk: Intermediate Procedure Risk: Low Anesthetic Plan Anesthetic Plan: MAC: Disposition: Standard PACU
--- NOTE | 2023-11-30 10:55 | PM.DS ---
DS: Providers Provider Date of Service: 11/30/23 Date of discharge: 11/30/23 Primary care physician: LUIS Malagon Admitting clinician: Adrian Quinonez DS: Diagnosis Discharge Diagnosis (1) Bilateral carpal tunnel syndrome: Status: Acute DS: Summary Time Attestation Discharge coordination time: Less than 30 minutes Quality: Safe Use of Opioids Does Pt have an Active Cancer Diagnosis on the Problem List?: No Quality: Stroke Does the patient have a stroke diagnosis?: No Physical Exam Vital Signs: Vital Signs: Last Vital Signs Temp 98.0 F 11/30/23 10:00 Pulse 62 11/30/23 10:00 Resp 16 11/30/23 10:00 BP 153/88 H 11/30/23 10:00 Pulse Ox 94 11/30/23 10:00 O2 Del Method Room Air 11/30/23 10:00 BMI result Body Mass Index 35.0 Discharge Plan Discharge Patient Disposition: Home, Self-Care Referrals: Felipe Mendez PA [Primary Care Provider] - 1 Week Discharge Medications: New tramadol 50 mg tablet 50 mg PO Q6H PRN (Reason: pain) Qty: 20 0RF Continued tramadol 50 mg tablet 50 mg PO Q8H Qty: 40 0RF lisinopril 40 mg tablet 40 mg PO DAILY allopurinol 300 mg tablet 300 mg PO DAILY ibuprofen 600 mg tablet 600 mg PO TID PRN (Reason: moderate pain) paroxetine HCl 40 mg tablet 40 mg PO DAILY indomethacin 50 mg capsule 50 mg PO TID aspirin [Adult Low Dose Aspirin] 81 mg tablet,delayed release (DR/EC) 81 mg PO DAILY Discharge Orders: Discharge Order (Routine); Ordered 11/30/23 Ordered By: Matt Henao Diet: Advance to usual diet Activity on Discharge: As tolerated Activity Restrictions/Additional Instructions: You may remove your toby wrap on post op day 3, as well as the dressing underneath it There are sutures in your wound, and you will need these removed 10-14 days after surgery. Please call the office to arrange this visit, You can use your hand as much as you like, however, please avoid straining or heavy lifting It will help swelling in your hand to keep it elevated when you are not using it. You can shower on post op day 1, but please keep wound dry You can drive when you feel comfortable and are off narcotics If you experience any signs of infection such as fever, chills or redness/discharge from your wound,please call office right away
--- NOTE | 2023-11-30 11:04 | W.PM.OPN ---
Operative Note Operative Note Date of Service: 11/30/23 Narrative: Diagnosis: leftcarpal tunnel syndrome Procedure: left median nerve release Surgeon: Adrian Quinonez MD PhD Description procedure: This 63-year-old male is suffering from a bilateral carpal tunnel syndrome. We will be addressing the left side today The patient was offered a decompression of the median nerve. The procedure complications were explained. The patient was consented. He was brought to the operating room, where moderate sedation was applied. Prepping and draping was done followed by time-out. Marcaine was injected into the mid volar region. A midvolar incision was made. The ligamentum carpi transversum was opened sharply until the median nerve became visible. A Metzenbaum scissor was used to decompress the median nerve proximally and distally over its trajectory. Significant compression was present. Hemostasis was done. The incision was closed with 3 interrupted sutures. A compressive JUDITH wrap was used for hemostasis. All sponge and needle counts were correct. Patient was transported to the recovery room. Anesthesia: Moderate sedation and local anesthetic Blood loss: Minimal Complications: None Disposition: Discharge home
[2023-11-30 11:08] VITALS: BP 130/76; PULSE 64; RESP 15; TEMP 36.5; O2SAT 94
[2023-11-30 11:23] VITALS: BP 140/83; PULSE 58; RESP 14; O2SAT 96
[2023-11-30 11:38] VITALS: BP 132/84; PULSE 56; RESP 16; O2SAT 97
[2023-11-30 11:49] VITALS: BP 148/81; PULSE 61; RESP 18; TEMP 36.2; O2SAT 98
== END 2023-11-30 12:49 | disposition home or self-care (01) ==
PROVIDERS: PCP Physician Assistant Medical; Visit Provider Neurological Surgery
PROC: (CPT 64721; principal; 2023-11-30 10:50)
DX: G56.02 Carpal tunnel syndrome, left upper limb (principal); R20.0 Anesthesia of skin; G62.9 Polyneuropathy, unspecified; Z91.81 History of falling; M54.2 Cervicalgia; C14.0 Malignant neoplasm of pharynx, unspecified; R26.9 Unspecified abnormalities of gait and mobility; I10 Essential (primary) hypertension; M10.9 Gout, unspecified; F41.9 Anxiety disorder, unspecified; Z79.82 Long term (current) use of aspirin; Z79.899 Other long term (current) drug therapy
CPT/HCPCS: 64721; J0690; J1100; J2250; J2405; J2704; J3010

== ENCOUNTER → 2023-11-30 09:19 | Outpatient (BNV) | payer MEDICARE, SELFPAY | PROVIDERS: PCP Physician Assistant Medical; Visit Provider Physician Assistant | DX: G56.03 Carpal tunnel syndrome, bilateral upper limbs (principal) | CPT/HCPCS: 64721; 99499 ==

== ENCOUNTER 2023-12-24 12:24 | Day surgery (SDC) | payer MEDICARE, SELFPAY ==
[2023-12-22 11:26] VITALS: BMI 35.0
--- NOTE | 2023-12-24 06:59 | MHC.SHP ---
Pre-Procedural Eval Section A - 24 Hr Update-Section A only Date of Service: 12/24/23 The patient is an INPATIENT: No Changes since office visit: No Cold of Flu in the past 2 weeks, No New Medical Problems, No Changes in Medication and No Patient answered all questions The patient has been examined within 24 hours of the surgical procedure. The History & Physical has been completed within 30 days and I have reviewed it.: No Section B - Complete if H&P > 30 days Chief Complaint: Carpal tunnel syndrome, bilateral upper limbs Allergies: Allergies Allergy/AdvReac Type Severity Reaction Status Date / Time morphine Allergy Severe Itching Verified 09/29/23 14:10 Review of Systems Sugical H&P ROS: Negative: Constitution, Cardiovascular, Respiratory, Neurological, Psychiatric, Hem-Onc, Allergic/Immunologic, Gastrointestinal, Genitourinary, Musculoskeletal, Integumentary, Endocrine and Eyes/Ears/Nose/Throat Exam Surgical H&P Exam: Not Evaluated: HEENT, Not Evaluated: Heart, Not Evaluated: Lungs, Not Evaluated: Extremities, Not Evaluated: Abdomen, Not Evaluated: Skin and Not Evaluated: Neurological Plan Diagnosis/Plan: Unchanged right carpal tunnel release Time Spent With Patient Time: Total time managing care of this patient today _7___ minutes.
[2023-12-24 12:27] VITALS: BMI 35.5
[2023-12-24 12:35] VITALS: PULSE 67; RESP 20; TEMP 36.6; O2SAT 96
[2023-12-24 12:38] VITALS: BP 180/89
[2023-12-24] MEDS: Lactated Ringers 1,000 ML 50 ML IVCONT (12:46)
--- NOTE | 2023-12-24 12:47 | PC.NURSE ---
pt has laceration right pinkie with sutures bandaid d/i
--- NOTE | 2023-12-24 12:53 | HO.ANESPROP2 ---
HPI - Anesthesia Eval Consult details Narrative: Right Carpal Tunnel PMFSH Active Problems Active Problems: All Active Problems (Updated 08/26/23 @ 14:10 by Ricci Marino MD) Arthritis of right hip (Acute) Bilateral carpal tunnel syndrome (Acute) Hip pain, acute (Acute) Spinal stenosis in cervical region (Acute) AMEE on CPAP (Acute) Neck pain (Acute) Low back pain (Acute) BPH (benign prostatic hyperplasia) (Acute) Depression (Acute) Arthritis (Acute) Gout (Acute) Hyperlipidemia (Acute) HTN (hypertension) (Acute) Obesity (Acute) Frequent falls (Acute) Gait disorder (Acute) Past Medical History Medical History Spinal stenosis in cervical region AMEE on CPAP Neck pain Low back pain BPH (benign prostatic hyperplasia) Depression Arthritis Gout 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 Hyperlipidemia HTN (hypertension) Obesity Frequent falls Gait disorder Family History Family History Father Cancer HTN (hypertension) Gout Mother Cancer Hepatitis Family history of problems with anesthesia: No Surgical History Surgical History History of carpal tunnel release (11/30/23) History of Problems with Anesthesia: No Social History Social History Alcohol intake: current Alcohol intake frequency: holidays/special occasions only Patient Tobacco Use Status: Never used Tobacco Second Hand Smoke Exposure: No Are you DNR?: No Advance Directives: No Advance Directives Information Provided: Yes Nutrition Risks: No Nutritional Risk Current occupational status: employed 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 Meds Allergies Allergy/AdvReac Type Severity Reaction Status Date / Time morphine Allergy Severe Itching Verified 09/29/23 14:10 Active Medications: Current Medications Cefazolin Sodium/Dextrose (Ancef) 2 gm in 50 mls @ 100 mls/hr IV PREOP ONE Stop: 12/24/23 12:54 Lactated Ringer's (Lr) 1,000 mls @ 50 mls/hr IVCONT .Q20H TALON Last Admin: 12/24/23 12:46 Dose: 50 mls/hr Home Medications Medication Instructions Recorded Confirmed Last Taken Type allopurinol 300 mg tablet 300 mg PO DAILY 02/25/23 08/26/23 Unknown History lisinopril 40 mg tablet 40 mg PO DAILY 02/25/23 08/26/23 Unknown History paroxetine HCl 40 mg tablet 40 mg PO DAILY 02/25/23 08/26/23 Unknown History aspirin 81 mg tablet,delayed 81 mg PO DAILY 08/26/23 08/26/23 Unknown History release (Adult Low Dose Aspirin) Exam Height,Weight and Vital Signs: Height 5 ft 10 in Weight 112.3 kg Last Vital Signs Temp 98 F 12/24/23 12:35 Pulse 67 12/24/23 12:35 Resp 20 12/24/23 12:35 BP 180/89 H 12/24/23 12:38 Pulse Ox 96 12/24/23 12:35 O2 Del Method Room Air 12/24/23 12:35 Airway Mallampati Class: II TM Dist: >3cm Neck ROM: Full Loose/Missing/Broken Teeth: Yes (many missing and chipped, poor dentition globally) Heart: [id number] Lungs: cta b/l Assessment and Plan Assessment Anesthesia Assessment: Anesthesia Plan Discussed and Chart Reviewed Final Anesthetic Review Family History of Problems with Anesthesia: No History of Problems with Anesthesia: No NPO: Yes ASA Class: III Final Preanesthetic Review: Meds/Allgs Chart Reviewed, Consent Obtained/Reviewed and Anes Risks/Benef Reviewed Patient Risk: Intermediate Procedure Risk: Low Assessment/Block/Sedation in SS: Assess/Block/Sedation-SS Anesthetic Plan Anesthetic Plan: MAC: Disposition: Standard PACU
[2023-12-24 13:42] VITALS: BP 138/55; PULSE 61; RESP 16; TEMP 36.6; O2SAT 95
--- NOTE | 2023-12-24 13:44 | W.PM.OPN ---
Operative Note Operative Note Date of Service: 12/24/23 Narrative: Diagnosis: Right carpal tunnel syndrome Procedure: Right median nerve release Surgeon: Adrian Quinonez MD PhD Description procedure: This 63-year-old male suffering from bilateral carpal tunnel syndrome. He underwent left-sided median nerve release 2 weeks ago. Today's scheduled for the right side. The patient was offered a decompression of the median nerve. The procedure complications were explained. The patient was consented. He was brought to the operating room, where moderate sedation was applied. Prepping and draping was done followed by time-out. Marcaine was injected into the mid volar region. A midvolar incision was made. The ligamentum carpi transversum was opened sharply until the median nerve became visible. A small artery on the volar side delayed the procedure as it kept opening up despite coagulation. Finally A Metzenbaum scissor was used to decompress the median nerve proximally and distally over its trajectory. Significant compression was present both proximally and distally. Hemostasis was done. The incision was closed with 2 interrupted sutures. A compressive JUDITH wrap was used for hemostasis. All sponge and needle counts were correct. Patient was transported to the recovery room. Anesthesia: Moderate sedation and local anesthetic Blood loss: 20 mL Complications: None Disposition: Discharge home
[2023-12-24 13:57] VITALS: BP 156/72; PULSE 58; RESP 16; O2SAT 95
[2023-12-24 14:12] VITALS: BP 163/86; PULSE 59; RESP 16; TEMP 36.6; O2SAT 96
--- NOTE | 2023-12-24 15:00 | PM.DS ---
DS: Providers Provider Date of Service: 12/24/23 Primary care physician: LUIS Malagon DS: Summary Time Attestation Discharge coordination time: Less than 30 minutes Quality: Safe Use of Opioids Does Pt have an Active Cancer Diagnosis on the Problem List?: No Quality: Stroke Does the patient have a stroke diagnosis?: No Physical Exam Vital Signs: Vital Signs: Last Vital Signs Temp 97.8 F 12/24/23 14:12 Pulse 59 12/24/23 14:12 Resp 16 12/24/23 14:12 BP 163/86 H 12/24/23 14:12 Pulse Ox 96 12/24/23 14:12 O2 Del Method Room Air 12/24/23 14:12 BMI result Body Mass Index 35.5 Discharge Plan Discharge Patient Disposition: Home, Self-Care Referrals: Felipe Mendez PA [Primary Care Provider] - Discharge Medications: New tramadol 50 mg tablet 50 mg PO BID PRN (Reason: severe pain (scale score 7-10)) Qty: 14 0RF Continued lisinopril 40 mg tablet 40 mg PO DAILY allopurinol 300 mg tablet 300 mg PO DAILY paroxetine HCl 40 mg tablet 40 mg PO DAILY aspirin [Adult Low Dose Aspirin] 81 mg tablet,delayed release (DR/EC) 81 mg PO DAILY Discharge Orders: Discharge Order (Routine); Ordered 12/24/23 Ordered By: Nicola Abrams Diet: Advance to usual diet Activity on Discharge: As tolerated Activity Restrictions/Additional Instructions: DISCHARGE INSTRUCTIONS You may remove your toby wrap on post op day 3, as well as the dressing underneath it There are sutures in your wound, and you will need these removed 10-14 days after surgery. Please call the office to arrange this visit, You can use your hand as much as you like, however, please avoid straining or heavy lifting It will help swelling in your hand to keep it elevated when you are not using it. You can shower on post op day 1, but please keep wound dry You can drive when you feel comfortable and are off narcotics If you experience any signs of infection such as fever, chills or redness/discharge from your wound,please call office right away
== END 2023-12-24 14:56 | disposition home or self-care (01) ==
PROVIDERS: PCP Physician Assistant Medical; Visit Provider Neurological Surgery
PROC: (CPT 64721; principal; 2023-12-24 16:40)
DX: G56.01 Carpal tunnel syndrome, right upper limb (principal); M48.02 Spinal stenosis, cervical region; R26.9 Unspecified abnormalities of gait and mobility; Z91.81 History of falling; C14.0 Malignant neoplasm of pharynx, unspecified; G47.33 Obstructive sleep apnea (adult) (pediatric); I10 Essential (primary) hypertension; E78.5 Hyperlipidemia, unspecified; M10.9 Gout, unspecified; Z79.899 Other long term (current) drug therapy; Z79.82 Long term (current) use of aspirin; Z99.89 Dependence on other enabling machines and devices; Z88.5 Allergy status to narcotic agent
CPT/HCPCS: 64721; J0690; J2704

== ENCOUNTER → 2023-12-24 12:24 | Outpatient (BNV) | payer MEDICARE, SELFPAY | PROVIDERS: PCP Physician Assistant Medical; Visit Provider Neurological Surgery | DX: G56.01 Carpal tunnel syndrome, right upper limb (principal) | CPT/HCPCS: 64721; 99499 ==

== ENCOUNTER 2024-01-01 13:49 | Outpatient (AMB) | payer MEDICARE, SELFPAY ==
--- NOTE | 2024-01-01 13:52 | A.OFFVIS_ITS ---
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 Hyperlipidemia HTN (hypertension) Obesity Frequent falls Gait disorder Surgical History History of carpal tunnel release (11/30/23) Family History Father Cancer HTN (hypertension) Gout Mother Cancer Hepatitis Social History Alcohol intake: current Alcohol intake frequency: holidays/special occasions only Patient Tobacco Use Status: Never used Tobacco Second Hand Smoke Exposure: No Current occupational status: employed 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 Quinonez last week. He called the office and stated that he had some significant pain in his right hand accompanied by difficulty with articulation of his fingers. I had him placed on my schedule today to be evaluated. 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 He states that his right hand was swollen when compared to his left hand. His pain is slowly intensified as the day progressed, and he has had difficulty performing minor tasks such as shifting his vehicle and picking up his cell phone. He has not tried anything to alleviate the pain aside from his prescription tramadol. He states that using the hand aggravates the pain. Of note, he states that his pain was minimal from the day after surgery until yesterday, and reports that his symptoms were largely resolved. On exam he has no redness, no streaking, no induration, no fluctuance. There is no active drainage from the wound, and no purulence noted. He is unable to curl his fingertips to the distal palmar crease, and elicits pain when you attempt to straighten out his hand. His right hand is notably swollen when compared to his left hand. There is no significant evidence for cellulitis at this time, and no obvious indicators of any type of wound infection aside from pain and mild swelling. The patient has not been utilizing his Jeremy wrap since his surgery and may have a collection of inflammation near the surgical site as a result of overuse of his hand. I evaluated the patient alongside LUIS Henao. Our consensus was that the patient does not need a course of antibiotics as there are no obvious signs of infection. We advised the patient to obtain an Jeremy wrap and wrap his hand/wrist. We also advised him to elevate the hand and apply ice to the area for the next 12-24 hours. This will likely resolve the issue. Nicola Quinonez MD,PhD [facility] Coding Level of Care Code Global (69897) Diagnoses S/P carpal tunnel release Z98.890
== END 2024-01-01 14:49 | disposition home or self-care (01) ==
PROVIDERS: PCP Physician Assistant Medical; Visit Provider Physician Assistant
DX: Z98.890 Other specified postprocedural states (principal)
CPT/HCPCS: 99024

== ENCOUNTER → 2024-01-01 13:49 | Outpatient (BNVA) | payer MEDICARE, SELFPAY | PROVIDERS: PCP Physician Assistant Medical; Visit Provider Physician Assistant | DX: Z98.890 Other specified postprocedural states (principal) | CPT/HCPCS: 99212 ==

== ENCOUNTER 2024-01-08 10:14 | Outpatient (AMB) | payer MEDICARE, SELFPAY ==
--- NOTE | 2024-01-08 10:17 | MHC.OFFVIS ---
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 Hyperlipidemia HTN (hypertension) Obesity Frequent falls Gait disorder Surgical History History of carpal tunnel release (11/30/23) Family History Father Cancer HTN (hypertension) Gout Mother Cancer Hepatitis Social History Alcohol intake: current Alcohol intake frequency: holidays/special occasions only Patient Tobacco Use Status: Never used Tobacco Second Hand Smoke Exposure: No Current occupational status: employed 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 Sai is a pleasant 63 year old male who is about 2 weeks out from a right-sided carpal tunnel release. To recap he had a completely normal healing course with minimal pain or concerns for the first several days postoperatively. He then developed pain and swelling in his right hand, which developed idiopathically on POD 7. He was evaluated the next day in office by both this marine underwriter and LUIS Henao. We opted to not treat him with antibiotics as his incision site had no erythema, edema, purulence, or fluctuance. He also had no pain to palpation of the incision site. He did have difficulty articulating his fingers and reported pain to palpation of his 2-5 phalanges (H). We advised him to wrap his hand with an Jeremy wrap and ice the area. He was informed that his pain and swelling would likely resolve within the next few days. Sai reports that after being seen in the office his symptoms did not resolve by the next day, so he sought emergency services at [facility]. After being evaluated and having a CT scan of his right upper extremity completed they recommended admission and treatment with antibiotics. Unfortunately Sai remained in a very similar condition for the next few days while having antibiotics administered. After multiple days inpatient he was discharged home. On evaluation today, Sai has roughly 50% reduced swelling when compared to his swelling from last week, his incision site still looks good, has no swelling, erythema, fluctuance, or purulence. He continues to have no pain to palpation of his ventral wrist or around the incision site, but does still have pain to palpation of the ventral surface of his 5th MCP joint. He is able to articulate his R hand much better (likely as a result of reduced swelling) and can performed thumb opposition with all of his fingers. He is also able to curl his fingertips to the distal palmar crease, although he does elicit pain when doing so. I believe that Sai likely had a course of postoperative inflammation/swelling for a reason that is difficult to accurately ascertain. The important thing is that his symptoms continue to resolve, and the independent variable is time. I would like Sai to see us in the office again this coming Thursday on 01/13/[address] Quinonez is in the office so we can come to a more conclusive answer for his postoperative course. Nicola Quinonez MD,PhD [facility] Coding Level of Care Code Global (52116) Diagnoses S/P carpal tunnel release Z98.890
== END 2024-01-08 10:42 | disposition home or self-care (01) ==
PROVIDERS: PCP Physician Assistant Medical; Visit Provider Physician Assistant
DX: Z98.890 Other specified postprocedural states (principal)
CPT/HCPCS: 99024

== ENCOUNTER → 2024-01-08 10:14 | Outpatient (BNVA) | payer MEDICARE, SELFPAY | PROVIDERS: PCP Physician Assistant Medical; Visit Provider Physician Assistant | DX: Z98.890 Other specified postprocedural states (principal) | CPT/HCPCS: 99212 ==

== ENCOUNTER 2024-01-13 14:21 | Outpatient (AMB) | payer MEDICARE, SELFPAY ==
--- NOTE | 2024-01-13 14:25 | A.OFFVIS_ITS ---
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 Hyperlipidemia HTN (hypertension) Obesity Frequent falls Gait disorder Surgical History History of carpal tunnel release (11/30/23) Family History Father Cancer HTN (hypertension) Gout Mother Cancer Hepatitis Social History Alcohol intake: current Alcohol intake frequency: holidays/special occasions only Patient Tobacco Use Status: Never used Tobacco Second Hand Smoke Exposure: No Current occupational status: employed 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 He reports that he has slowly had return to function of his right hand over the course of the last week. His swelling is significantly reduced and he is feeling much better. He is able to articulate his right hand well, and is completing his ADLs without much issue. He does still wear a brace over his right hand, and has some difficulty curling his 4th and 5th digits to the distal palmar crease. He is otherwise doing well, in his happy that his symptoms are starting to subside. Dr. Quinonez was able to see the patient alongside me today. He is in agreement that the patient is healing well and we discussed some of the operative/postoperative complications regarding Sai's carpal tunnel surgery. As a final recap; we believe that Sai had postoperative swelling relating to both muscle inflammation and marlee rialization of a vessel on the ventral surface of his palm. We do not believe that he had a postoperative infection as his workup from the hospital did not support this, and the antibiotics did not provide needed relief. There is no need for routine follow-up with Sai, he may be discharged as a patient. He may follow-up as needed. Nicola Quinonez MD,PhD [facility] Coding Level of Care Code Global (33562) Diagnoses S/P carpal tunnel release Z98.890
== END 2024-01-13 15:59 | disposition home or self-care (01) ==
PROVIDERS: PCP Physician Assistant Medical; Visit Provider Physician Assistant
DX: Z98.890 Other specified postprocedural states (principal)
CPT/HCPCS: 99024

== ENCOUNTER → 2024-01-13 14:21 | Outpatient (BNVA) | payer MEDICARE, SELFPAY | PROVIDERS: PCP Physician Assistant Medical; Visit Provider Physician Assistant | DX: Z09 Encounter for follow-up examination after completed treatment for conditions other than malignant neoplasm (principal); Z98.890 Other specified postprocedural states | CPT/HCPCS: 99212 ==

== ENCOUNTER 2024-06-23 09:32 | Outpatient (AMB) | payer MEDICARE, SELFPAY ==
--- NOTE | 2024-06-23 09:36 | A.OFFVIS_ITS ---
Vital Signs 06/23/24 09:37 Height 5 ft 10 in Weight 235 lb BMI 33.7 BP 122/76 Blood Pressure Location Rt brachial Position Sitting Respiration 16 Pulse 60 Pulse Source Pulse Oximeter Pulse Oximetry (%) 98 Oxygen Delivery Method Room Air Intake Visit Reasons: 9 mo f/u - Supranuclear Palsy Intake Note: Pt presents to the office for a 9 month follow up for frequent falls. 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 He is less impulsive.MRI brain was non focal MRI C spine was c/w severe spinal stenosis at C3-4,4-5,5-6 levels- reviewed by Dr. Quinonez and another [facility] Neurosurgeon did not think its surgical He denies neck pain, no numbness , has difficulty holding his urine at night Previous history-He noticed that his balance was not good and had multiple falls starting about 1 year agoHe had 1-3 falls a week . He started to slow down and be more attentive and his falls decreased since then.his last fall was about 6 mths ago He has h/o chronic back pain. He also reports leg cramps and numbness mostly on his right when he is sitting. He also reports tingling worse when he is sitting.He has occasional shooting pain from back down his legs .He denies urinary incontinence. He has occasional neck pain and rare tremors. He denies any change in his voice. His last fall was when he tried to turn and lost his balance.No h/o heavy alcohol use. He has h/o vertigo- mild. He denies any passing out . According to his he walks into things . He is not sure if he has any visual issues. He has an appointment with web marketing strategist next week. 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 Hyperlipidemia HTN (hypertension) Obesity Frequent falls Gait disorder Surgical History History of carpal tunnel release (11/30/23) Family History Father Cancer HTN (hypertension) Gout Mother Cancer Hepatitis Social History Alcohol intake: current Alcohol intake frequency: holidays/special occasions only Patient Tobacco Use Status: Never used Tobacco Second Hand Smoke Exposure: No Current occupational status: employed 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 Physical Exam Vital Signs: Last Vital Signs Pulse 60 06/23/24 09:37 Resp 16 06/23/24 09:37 BP 122/76 06/23/24 09:37 Pulse Ox 98 06/23/24 09:37 Oxygen Delivery Method Room Air 06/23/24 09:37 BMI result Body Mass Index 33.7 Const Orientation/consciousness: patient oriented x3 Eyes Pupils: Equal, round and reactive pupils present Neuro Other: mild dysonjugate gaze General: patient oriented x3, tone normal, moves all extremities and no focal motor deficits Cranial nerves: Yes Facial sensation intact/muscles of mastication intact, Yes Equal, round and reactive pupils present, Yes Nystagmus not present, Yes Normal facial strength present, Yes Midline tongue present, Yes Symmetric palate elevation present and Yes Ability to bilaterally elevate shoulders present Cognition (Neuro): normal cognition Gait exam (Neuro): Antalgic gait present Motor exam (neuro): 5/5 motor strength present throughout Deep tendon reflexes (DTR's): Right triceps reflex intensity grade: 1+, Left triceps reflex intensity grade: 1+, Rt Biceps (C5, C6): 1+, Left biceps reflex intensity grade: 1+, Right brachioradialis reflex intensity grade: 1+, Left brachioradialis reflex intensity grade: 1+, Right patellar reflex intensity grade: 1+ and Left patellar reflex intensity grade: 0 Coordination: [id number] test normal Assessment & Plan Assessment & Plan (1) Gait disorder: Comment: cervical spinal stenosis Code(s): R26.9 - Unspecified abnormalities of gait and mobility Category: Medical (2) Frequent falls: Code(s): R29.6 - Repeated falls Category: Medical Plan No evidence of parkinsons or parkinsonism Dr. Quinonez for cervical spinal stenosis - did not think it was surgical. reviewed notes The falls and gait disorder are multifactorial - cognitive neurologic and musculoskeletal - suggested to continue with paying attention , using good judgment while ambulating suggested orthotics for his feet- to help with high arches. I will trial him on diclofenac 3% topical for pain. Medications: New ibuprofen 600 mg PO BID PRN diclofenac sodium 3% 1 appl topical BID 100 grams 0RF Discontinued tramadol Discontinued Reason: Doctor's Order 50 mg PO BID PRN 14 tabs 0RF severe pain (scale score 7-10) Coding Level of Care Code Est Pt Level 4 (56323) Diagnoses Gait disorder R26.9 Frequent falls R29.6
[2024-06-23 09:37] VITALS: BP 122/76; PULSE 60; RESP 16; O2SAT 98; BMI 33.7
== END 2024-06-23 10:14 | disposition home or self-care (01) ==
PROVIDERS: PCP Physician Assistant Medical; Visit Provider Psychiatry & Neurology Neurology
DX: R26.9 Unspecified abnormalities of gait and mobility (principal); R29.6 Repeated falls
CPT/HCPCS: 99214

== ENCOUNTER → 2024-06-23 09:32 | Outpatient (BNVA) | payer MEDICARE, SELFPAY | PROVIDERS: PCP Physician Assistant Medical; Visit Provider Psychiatry & Neurology Neurology | DX: R26.9 Unspecified abnormalities of gait and mobility (principal); R29.6 Repeated falls | CPT/HCPCS: 99212 ==

== ENCOUNTER 2025-08-11 08:14 | Outpatient (REF) | payer MEDICARE, SELFPAY ==
--- NOTE | ~2025-08-11 | XR_ITS ---
EXAMINATION: XR HIP, RIGHT CLINICAL INFORMATION: M25.551 - Pain in right hip COMPARISON: 08/07/2023. TECHNIQUE: AP pelvis, and 2 views of the right hip. FINDINGS: There is no fracture, dislocation, or suspicious bone lesion. Normal hip alignment bilaterally. There are at least moderate changes of osteoarthrosis of the right hip joint, with near complete superior joint space loss, subchondral sclerosis, and mild marginal osteophytic spurring. Normal femoral head contour without evidence of AVN. There are only mild changes of arthritis in the left hip joint. The SI joints appear normal. There are changes of spondylosis in the imaged lower lumbar spine. There is no discrete soft tissue abnormality. XR/XR hip RT min 2V IMPRESSION: At least moderate osteoarthrosis of the right hip joint as detailed. Electronically signed by: Kayden Cook MD 08/11/2025 11:14 AM EDT
--- OUTSIDE RECORDS SUMMARY | 2025-08-12 08:22 | XMS_ITS | Clinical Summary ---
Author Organization [facility] Address [address] [place] [phone] Phone Care Team Providers Care Grinding Supervisor Name Role Phone Felipe Mendez Primary Care [...] EST) Amylase 30 3 - 100 units/L [facility] Plasma Sodium 136 135 - 145 mmol/L [facility] Plasma Potassium 4.3 3.4 - 4.8 mmol/L [facility] Plasma Chloride 99(Abnorm ally L) 100 - 108 mmol/L [facility] Plasma Carbon Dioxide 25.7 23.0 - 31.9 mmol/L [facility] Plasma Urea Nitrogen 26(Abnorm ally H) 8 - 25 mg/dl [facility] Plasma Creatinine 0.82 0.60 - 1.50 mg/dl [facility] Plasma Glucose 114(Abnor lenin H) 70 - 110 mg/dl [facility] Calcium 9.3 8.5 - 10.5 mg/dl [facility] eGFR >60 mL/min/1. 73m2 [facility] Comment: Abnormal if <60 mL/min/1.73m2. If patient is -Albanian, multiply the result by 1.21. Plasma Anion GAP 11 3 - 15 mmol/L [facility] Creatine Kinase 38(Abnorm ally L) 60 - 400 U/L [facility] Albumin 3.5 3.3 - 5.0 g/dl [facility] Total Bilirubin 0.4 0.0 - 1.0 mg/dl [facility] Direct Bilirubin 0.1 0 - 0.4 mg/dl [facility] Alkaline Phosphatase 84 45 - 115 U/L [facility] Transaminase-SG OT 27 10 - 40 U/L [facility] Transaminase-SG PT 33 10 - 55 U/L [facility] Total Protein 7.9 6.0 - 8.3 g/dl [facility] Globulin 4.4(Abnor lenin H) 2.3 - 4.1 g/dl [facility] Lipase 20 13 - 60 U/L [facility] Magnesium 2.1(Abnor lenin H) 1.4 - 2.0 meq/L [facility] Phosphorus 2.7 2.6 - 4.5 mg/dl [facility] 10/11/2010 10:5 0 PM EST 10/11/2010 11:13 PM EST Comment:BLOOD us Conversion Provider Not In Sys LAB BLOOD ORDERAB LES Final Result [address] [id number] from Last 3 Months or Most Recently Relevant to Health Maintenance [facility] & B Member Subscriber Plan / Payer (Ef fective 2021-Present) Name:Sai Shin Member ID:[id number] Relation to Subscriber:Self Name:Sai Shin Subscriber ID:[id number] Payer ID:[id number] Group ID:Not on file Type:Medicare Address: [facility] [employer] [facility] [employer] [facility] [address] [place] [address] [place] B Member Subscriber Plan / Payer (Ef fective 2021-Present) Name:Sai Shin Member ID:[id number] Relation to Subscriber:Self Name:Sai Shin Subscriber ID:[id number] Payer ID:[id number] Group ID:Not on file Type:Medicare Address: [facility] [employer] [facility] [employer] [facility] [address] [place] [address] [place] PART A & B Member Subscriber Plan / Payer (Ef fective 2021-Present) Name:Sai Shin Member ID:[id number] Relation to Subscriber:Self Name:Sai Shin Subscriber ID:[id number] Payer ID:[id number] Group ID:Not on file Type:Medicare Address: [facility] [employer] [facility] [employer] [facility] [address] [place] [address] [place] PART A & B [place] B [place] & B [facility] MEDICARE PART A & B Care Teams Grinding Supervisor Relationship Specialty Start Date End Date Felipe Mendez PA [address] [place] [phone] [email or web address] PCP - General Physician Air Traffic Supervisor 05/25/23 Additional Source Comments The information contained in this document represents components of the legal health record. It is not the complete legal health record.[facility]
== END 2025-08-11 08:15 | disposition home or self-care (01) ==
LOC: HO.HOSX 08:14
PROVIDERS: Visit Provider Physician Assistant
DX: M16.11 Unilateral primary osteoarthritis, right hip (principal)
CPT/HCPCS: 73502; 99212

== ENCOUNTER 2025-08-11 10:59 | Outpatient (AMB) | payer MEDICARE, MEDICAID, SELFPAY ==
--- NOTE | 2025-08-11 11:02 | A.OFFVIS_ITS ---
Vital Signs 08/11/25 11:16 Height 5 ft 10 in Weight 240 lb BMI 34.4 Intake Visit Reasons: OV - RT hip pain Intake Note: Sai is a 64 year old male who presents today for a follow up on his right hip OA. He was last seen in office on 08/26/[address] Marino, note mentions frequent falls, and discussed hip replacement surgery however patient and provider felt best to hold off as long as possible. Today patient reports his pain is getting increasingly worse. He complains of sharp pain in his groin area and at times at the lateral aspect of hip. He mentions a couple of falls off of his truck. Finds that ibuprofen provides him with very little relief. Allergies morphine Allergy (Severe, Verified 08/11/25 11:19) Itching Medication List - Last Reconciled 08/11/25 by Dipak Aponte PA-C allopurinol 300 mg PO DAILY aspirin (Adult Low Dose Aspirin) 81 mg PO DAILY diclofenac sodium 3% 1 appl topical BID ibuprofen 600 mg PO BID PRN lisinopril 40 mg PO DAILY HPI HPI OV - RT hip pain: Details: 64-year-old gentleman presents to the office today for ongoing right hip pain. He has had pain for several years and was seen in [address] Marino who mentioned he did have right hip arthritis but felt the patient was not at the point he would need a hip replacement. The patient states he continues to have pain with daily activities such as getting in and out of a truck. In and out of a car. Walking long distances and going up and downstairs. He feels as though his life is significantly diminished due to his hip pain. 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 Hyperlipidemia HTN (hypertension) Obesity Frequent falls Gait disorder Surgical History (Updated 08/11/25 @ 11:15 by Shannan Alva Abena) History of carpal tunnel release (11/30/23) Family History Father Cancer HTN (hypertension) Gout Mother Cancer Hepatitis Social History Alcohol intake: current Alcohol intake frequency: holidays/special occasions only Patient Tobacco Use Status: Never used Tobacco Second Hand Smoke Exposure: No Current occupational status: employed 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 He has pain with hip flexion and range of motion. Calf is supple and nontender neurovascularly intact. Results Reviewed Results Reviewed: X-rays of the right hip obtained in the office today and reviewed by me show moderate degenerative changes of the hip Assessment & Plan Assessment & Plan (1) Arthritis of right hip: Code(s): M16.11 - Unilateral primary osteoarthritis, right hip Category: Medical Plan: We had a lengthy discussion about the extent of his OA and options available which include surgical intervention. He is interested in pursuing Total knee arthroplasty to improve his functional capacity and daily activities. I explained to him the procedure in detail, the hospital stay and details about post op rehab and precautions. He does understand all this and would like to move forward. I did put him in contact with our Nurse Navigator, Rebecca who will set him up with pre op planning and book accordingly. He also made an appointment with Dr. Adams to discuss further. All questions were answered. Orders: Orders XR hip RT min 2V Today M25.551 - Pain in right hip Coding Level of Care Code Est Pt Level 4 (75854) Complex EM visit Add On G2211 Diagnoses Arthritis of right hip M16.11
[2025-08-11 11:16] VITALS: BMI 34.4
--- OUTSIDE RECORDS SUMMARY | 2025-08-11 11:38 | XMS_ITS | Clinical Summary ---
Author Organization [facility] Address [address] [place] [address] Phone Care Team Providers Care Iv Rn Name Role Phone Felipe Mendez Primary Care Provider Allergies Active Allergy Reactions Criticality Noted Date Comments Morphine Itching 12/13/2018 Other Reaction(s): feels like skin crawlly Medications aspirin 81 MG EC tablet Take 81 mg by mouth daily. Active allopurinol (ZYLOPRIM) 300 MG tablet Take 1 tablet by mouth every morning. 09/16/2024 Active lisinopril (PRINIVIL,ZESTRI L) 40 MG tablet Take 1 tablet by mouth every morning. 08/11/2024 Active Active Problems No known active problems Social History Tobacco Use Types Packs/Day Years Used Date Smoking Tobacco: Never Assessed Education Answer Date Recorded Are you interested in more education? Not on jackson e 03/21/2023 Are you concerned about learning? Not on file 03/21/2023 No 03/21/2023 No 03/21/2023 Digital Access Answer Date Recorded No 04/16/2023 No 04/16/2023 Reliable internet access at home? Not on file 04/16/2023 Device with a working camera? Not on file Sex and Gender Information Value Date Recorded Sex Assigned at Not on file Legal Sex Male 5:04 PM EST Gender Identity Not on file Sexual Orientation Not on file Last Filed Vital Signs Vital Sign Reading Time Taken Comments Blood Pressure 136/90 11/08/2024 2:23 PM EST Pulse 66 11/08/2024 2:23 PM EST Temperature 36.7 C (98 F) 11/06/2021 2:22 PM EST Respiratory Rate 16 10/23/2022 10:33 AM EST Oxygen Saturation 96% 11/08/2024 2:23 PM EST Inhaled Oxygen Concentration - - Weight 106.6 kg (235 lb) 11/08/2024 2:23 PM EST Height 177.8 cm (5' 10 ) 11/08/2024 2:23 PM EST Body Mass Index 33.72 11/08/2024 2:23 PM EST Plan of Treatment Health Maintenance Due Date Last Done Comments DEPRESSION SCREENING 1970 SMOKING Hx and SMOKELESS TOBACCO SCREENING 1971 COLOGUARD 2003 COLONOSCOPY 2003 COLORECTAL CANCER SCREENING 2003 FIT TEST 2003 FOBT 2003 SIGMOIDOSCOPY 2003 VIRTUAL COLONOSCOPY 2003 ZOSTER VACCINES (1 of 2) 2008 CREATININE LEVEL 10/11/2011 10/11/2010 POTASSIUM LEVEL 10/11/2011 10/11/2010 SCREENING FOR DIABETES 09/20/2023 09/20/2020, 2009 PNEUMOCOCCAL VACCINES (50+ years) (3 of 3 - PCV20 or PCV21) 12/08/2024 12/08/2019, 07/07/2019 INFLUENZA VACCINE (#1) 2025 2, 08/26/2021, 11/24/2018, Additional history exists COVID-19 VACCINE ( season) 2025 LIPID PANEL 08/16/2026 08/16/2021 Adult Td,Tdap Booster 11/24/2029 11/24/2019 , 06/23/2012, 12/21/2011 RSV VACCINE (1 - 1-dose 75+ series) 2033 HEPATITIS C SCREENING Completed 11/24/2019 HEPATITIS A VACCINES Aged Out No long er eligible based on patient's age to complete this topic HIB VACCINES Aged Out No longer eligi ble based on patient's age to complete this topic MENINGOCOCCAL VACCINES (ACWY) Aged Out No longer eligible based on patient's age to complete this topic MENINGOCOCCAL VACCINES (B) Aged Out N o longer eligible based on patient's age to complete this topic Medical Devices Not on file Procedures Procedure Name Priority Date/Time Associated Diagnosis Comments HISTORICAL LAB Routine 10/11/2010 10:50 PM EST from Last 3 Months or Most Recently Relevant to Health Maintenance Results * (ABNORMAL) Historical Lab (10/11/2010 10:50 PM EST) Amylase 30 3 - 100 units/L [facility] Plasma Sodium 136 135 - 145 mmol/L [facility] Plasma Potassium 4.3 3.4 - 4.8 mmol/L [facility] Plasma Chloride 99(Abnorm ally L) 100 - 108 mmol/L [facility] Plasma Carbon Dioxide 25.7 23.0 - 31.9 mmol/L [facility] Plasma Urea Nitrogen 26(Abnorm ally H) 8 - 25 mg/dl [facility] Plasma Creatinine 0.82 0.60 - 1.50 mg/dl [facility] Plasma Glucose 114(Abnor lenin H) 70 - 110 mg/dl [facility] Calcium 9.3 8.5 - 10.5 mg/dl [facility] eGFR >60 mL/min/1. 73m2 [facility] Comment: Abnormal if <60 mL/min/1.73m2. If patient is -Slovenian, multiply the result by 1.21. Plasma Anion GAP 11 3 - 15 mmol/L [facility] Creatine Kinase 38(Abnorm ally L) 60 - 400 U/L [facility] Albumin 3.5 3.3 - 5.0 g/dl [facility] Total Bilirubin 0.4 0.0 - 1.0 mg/dl [facility] Direct Bilirubin 0.1 0 - 0.4 mg/dl [facility] Alkaline Phosphatase 84 45 - 115 U/L [facility] Transaminase-SG OT 27 10 - 40 U/L [facility] Transaminase-SG PT 33 10 - 55 U/L [facility] Total Protein 7.9 6.0 - 8.3 g/dl [facility] Globulin 4.4(Abnor lenin H) 2.3 - 4.1 g/dl [facility] Lipase 20 13 - 60 U/L [facility] Magnesium 2.1(Abnor lenin H) 1.4 - 2.0 meq/L [facility] Phosphorus 2.7 2.6 - 4.5 mg/dl [facility] 10/11/2010 10:5 0 PM EST 10/11/2010 11:13 PM EST Comment:BLOOD us Conversion Provider Not In Sys LAB BLOOD ORDERAB LES Final Result [address] [id number] from Last 3 Months or Most Recently Relevant to Health Maintenance [facility] & B [place] B [facility] MEDICARE PART A & B Care Teams Iv Rn Relationship Specialty Start Date End Date Felipe Mendez PA [address] [place] [phone] [email or web address] PCP - General Physician Manager [place] 05/25/23 Additional Source Comments The information contained in this document represents components of the legal health record. It is not the complete legal health record.[facility]
== END 2025-08-11 12:13 | disposition home or self-care (01) ==
LOC: HO.HOS 10:59
PROVIDERS: PCP Physician Assistant Medical; Visit Provider Physician Assistant
DX: M16.11 Unilateral primary osteoarthritis, right hip (principal)
CPT/HCPCS: 99214; G2211

== ENCOUNTER → 2025-08-11 11:01 | Outpatient (BNV) | payer MEDICARE, MEDICAID, SELFPAY | PROVIDERS: Visit Provider Radiology Diagnostic Radiology | DX: M16.11 Unilateral primary osteoarthritis, right hip (principal) | CPT/HCPCS: 73502 ==

== ENCOUNTER 2025-09-18 11:16 | Outpatient (AMB) | payer MEDICARE, MEDICAID, SELFPAY ==
[2025-09-18 11:22] VITALS: BMI 34.4
--- NOTE | 2025-09-18 11:22 | MHC.OFFVIS ---
Vital Signs 09/18/25 11:22 Height 5 ft 10 in Weight 240 lb BMI 34.4 Intake Visit Reasons: OV- Discuss right hip MUKUND Intake Note: Sai is a 65 year old male who presents today for a follow up of his Right Hip OA, to discuss UMKUND. He was last seen with Dipak Aponte who has referred him to discuss surgery. BMI: 34.4(5'10' 240lbs) Allergies morphine Allergy (Severe, Verified 09/18/25 11:23) Itching HPI HPI OV- Discuss right hip MUKUND: Details: Sai is a 65 year old male who presents today for a follow up of his Right Hip OA, to discuss MUKUND. The patient states he continues to have pain with daily activities such as getting in and out of a truck. In and out of a car. Walking long distances and going up and down stairs. This has been ongoing at least 2 years. He feels as though his life is significantly diminished due to his hip pain. 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 BMI: 34.4(5'10' 240lbs). He has tried non narcotic medication and activity modification. His pain localizes to anterior hip and groin. 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 Hyperlipidemia HTN (hypertension) Obesity Frequent falls Gait disorder Surgical History (Updated 08/11/25 @ 11:15 by KOFI Juan) History of carpal tunnel release (11/30/23) Family History Father Cancer HTN (hypertension) Gout Mother Cancer Hepatitis Social History Alcohol intake: current Alcohol intake frequency: holidays/special occasions only Patient Tobacco Use Status: Never used Tobacco Second Hand Smoke Exposure: No Current occupational status: employed 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 Resp Other: No audible wheezing Effort & Inspection: normal respiratory effort Cardio Other: Radial pulse palpable with no rythmic abnormalities Back/Spine/Pelvis Cervical Spine: normal cervical lordosis Skin General skin exam: no rashes or lesions noted Neuro General: no focal motor deficits Extrem Other: RIght hip with + impingement and Stinchfield. + Trendelenber gait flexion to 100 deg. Psych Appearance: grossly normal and well kempt Mental Status: mental status grossly normal Speech and movement: Normal speech and movement present Affect: normal affect Attitude: cooperative Results Reviewed Results Reviewed: I personally reviewed relevant radiographs. Moderate to severe right hip OA Assessment & Plan Assessment & Plan (1) Arthritis of right hip: Code(s): M16.11 - Unilateral primary osteoarthritis, right hip Category: Medical Plan: This is a 65-year-old gentleman with right hip osteoarthritis. Radiographs demonstrate moderate to severe loss of superior joint space. He limps when he walks and can not comfortably walk more than 5 minutes. He states the more he does the worse it hurts. He has difficulty getting into and out of a car or sleeping. He feels his motion is restricted. He feels his quality of life is diminished. He is 65 and relatively healthy. Most of his medical conditions related to musculoskeletal pain as well as hypertension. I had a long discussion with him regarding the risks, benefits and alternatives to right hip replacement. My recommendation is a right hip replacement. I discussed the risk of infection, dislocation, fracture, need for additional surgery and aseptic loosening as well as medical complications associated with surgery which can include blood clots, PE, organ failure among others. I answered his questions to the best of my abilities. We will begin the preoperative clearance process. Coding Level of Care Code Est Pt Level 4 (67479) Diagnoses Arthritis of right hip M16.11
--- OUTSIDE RECORDS SUMMARY | 2025-09-18 14:24 | XMS_ITS | Clinical Summary ---
Author Organization [facility] Address [address] [place] [phone] Phone Care Team Providers Care Edge Bander Hand Name Role Phone Felipe Mendez Primary Care [...] EST) Amylase 30 3 - 100 units/L [facility] Plasma Sodium 136 135 - 145 mmol/L [facility] Plasma Potassium 4.3 3.4 - 4.8 mmol/L [facility] Plasma Chloride 99(Abnorm ally L) 100 - 108 mmol/L [facility] Plasma Carbon Dioxide 25.7 23.0 - 31.9 mmol/L [facility] Plasma Urea Nitrogen 26(Abnorm ally H) 8 - 25 mg/dl [facility] Plasma Creatinine 0.82 0.60 - 1.50 mg/dl [facility] Plasma Glucose 114(Abnor lenin H) 70 - 110 mg/dl [facility] Calcium 9.3 8.5 - 10.5 mg/dl [facility] eGFR >60 mL/min/1. 73m2 [facility] Comment: Abnormal if <60 mL/min/1.73m2. If patient is -Macedonian, multiply the result by 1.21. Plasma Anion GAP 11 3 - 15 mmol/L [facility] Creatine Kinase 38(Abnorm ally L) 60 - 400 U/L [facility] Albumin 3.5 3.3 - 5.0 g/dl [facility] Total Bilirubin 0.4 0.0 - 1.0 mg/dl [facility] Direct Bilirubin 0.1 0 - 0.4 mg/dl [facility] Alkaline Phosphatase 84 45 - 115 U/L [facility] Transaminase-SG OT 27 10 - 40 U/L [facility] Transaminase-SG PT 33 10 - 55 U/L [facility] Total Protein 7.9 6.0 - 8.3 g/dl [facility] Globulin 4.4(Abnor lenin H) 2.3 - 4.1 g/dl [facility] Lipase 20 13 - 60 U/L [facility] Magnesium 2.1(Abnor lenin H) 1.4 - 2.0 meq/L [facility] Phosphorus 2.7 2.6 - 4.5 mg/dl [facility] 10/11/2010 10:5 0 PM EST 10/11/2010 11:13 PM EST Comment:BLOOD us Conversion Provider Not In Sys LAB BLOOD ORDERAB LES Final Result [address] [id number] from Last 3 Months or Most Recently Relevant to Health Maintenance [facility] B [place] A & B [facility] MEDICARE PART A & B Care Teams Edge Bander Hand Relationship Specialty Start Date End Date Felipe Mendez PA [address] [place] [phone] [email or web address] PCP - General Physician Manager Civil 05/25/23 Additional Source Comments The information contained in this document represents components of the legal health record. It is not the complete legal health record.[facility]
== END 2025-09-18 12:38 | disposition home or self-care (01) ==
LOC: HO.HOS 11:17
PROVIDERS: PCP Physician Assistant Medical; Visit Provider Orthopaedic Surgery
DX: M16.11 Unilateral primary osteoarthritis, right hip (principal)
CPT/HCPCS: 99214

== ENCOUNTER → 2025-09-18 11:16 | Outpatient (BNVA) | payer MEDICARE, SELFPAY | PROVIDERS: PCP Physician Assistant Medical; Visit Provider Orthopaedic Surgery | DX: M25.551 Pain in right hip (principal); M16.11 Unilateral primary osteoarthritis, right hip | CPT/HCPCS: 99212 ==